=== PATIENT | female | born 1990 | race African-American/Black ===

== ENCOUNTER 2017-09-26 12:00 | Emergency (ER) | payer OTHER ==
[~2017-09-26] VITALS: Ht 170.2 cm; Wt 90.7 kg
[~2017-09-26 12:00] MED LIST: CLEOCIN HCL150 MG PO; NORCO 5-325 TA1 EACH PO; ZPAK PO
[2017-09-26 12:02] VITALS: BP 126/71
[2017-09-26] MEDS ORDERED: NORCO 5-325 TA1 EACH PO (12:13)
[2017-09-26] MEDS ORDERED: IBUPROFEN 800800 MG PO (12:13)
== END 2017-09-26 13:09 | disposition home or self-care (01) ==
LOC: ER 12:00
DX: S83.91XA Sprain of unspecified site of right knee, initial encounter (principal); X50.0XXA Overexertion from strenuous movement or load, initial encounter; X50.3XXA Overexertion from repetitive movements, initial encounter; Y93.89 Activity, other specified; Y92.89 Other specified places as the place of occurrence of the external cause; Y99.8 Other external cause status; I10 Essential (primary) hypertension; Z98.890 Other specified postprocedural states

== ENCOUNTER 2017-10-15 14:53 | Emergency (ER) | payer OTHER ==
[~2017-10-15] VITALS: Ht 170.2 cm; Wt 90.7 kg
[~2017-10-15 14:53] MED LIST changes: +IBUPROFEN 800800 MG PO
[2017-10-15 16:10] LABS: ABSOLUTE NEUTROPHILS 3.4 thou/uL (1.4-8.2); BASOPHILS 0.7 % (0.0-2.0); HEMATOCRIT 35.6 % (37.0-47.0); HEMOGLOBIN 11.7 gm/dL (12.0-15.0); LYMPHOCYTES 41.2 % (24.0-44.0); MCH 25.8 pg (26.0-34.0); MCHC 32.9 g/dL (28.0-37.0); MCV 78.5 fL (80.0-100.0); PLATELET COUNT 365 thou/uL (150-400); POLYS 49.1 % (36.0-66.0); RBC 4.53 mil/uL (4.20-5.00); RDW 17.2 % (10.5-14.5); WBC 6.8 thou/uL (4.0-11.0)
[2017-10-15 16:15] LABS: URINE BILIRUBIN 1+ (Negative); URINE BLOOD NEGATIVE (Negative); URINE CLARITY CLEAR; URINE COLOR YELLOW; URINE GLUCOSE-RANDOM* NEGATIVE (Negative); URINE KETONES TRACE (Negative); URINE LEUKOCYTES NEGATIVE (Negative); URINE NITRITE NEGATIVE (Negative); URINE PROTEIN (DIPSTICK) TRACE (Negative); URINE SPECIFIC GRAVITY 1.025 (1.005-1.035); URINE UROBILINOGEN 0.2 E.U./dl (0.2-1.0)
[2017-10-15 16:19] LABS: ICTOTEST (BILI CONFIRMATORY) Negative (Negative)
[2017-10-15 16:24] LABS: CALCIUM 8.9 mg/dL (8.5-10.1); CREATININE 0.7 mg/dL (0.6-1.0); POTASSIUM 3.6 mmol/L (3.5-5.1)
[2017-10-15 16:30] LABS: ALBUMIN 3.5 g/dL (3.4-5.0); TOTAL BILIRUBIN 0.4 mg/dL (<0.1-1.0); TOTAL PROTEIN 7.2 g/dL (6.4-8.2)
[2017-10-15] MEDS ORDERED: PHENERGAN 25 MG25 M1 PO (17:14)
[2017-10-15] MEDS ORDERED: NAPROSYN500 MG PO (17:14)
== END 2017-10-15 17:27 | disposition home or self-care (01) ==
LOC: ER 14:53
PROVIDERS: Physician Assistant
DX: R11.2 Nausea with vomiting, unspecified (principal); R10.2 Pelvic and perineal pain; I10 Essential (primary) hypertension; Z98.890 Other specified postprocedural states

== ENCOUNTER 2018-01-26 12:44 | Emergency (ER) | payer OTHER ==
[~2018-01-26] VITALS: Ht 170.2 cm; Wt 90.7 kg
[~2018-01-26 12:44] MED LIST changes: +NAPROSYN500 MG PO; +PHENERGAN 25 MG25 M1 PO
[2018-01-26 12:49] VITALS: BP 122/76
[2018-01-26] MEDS ORDERED: HYDROCODONE-AP1 EAC6 PO (13:42)
== END 2018-01-26 13:55 | disposition home or self-care (01) ==
LOC: ER 12:44
DX: M25.531 Pain in right wrist (principal); I10 Essential (primary) hypertension; Z88.0 Allergy status to penicillin